=== PATIENT | male | born 1990 | race Caucasian/White ===

== ENCOUNTER 2024-01-12 19:35 | Emergency (ER) | payer SELFPAY ==
[~2024-01-12] VITALS: Ht 172.7 cm; Wt 100.0 kg
[2024-01-12 19:46] VITALS: TEMP 99.5; O2SAT 98
[2024-01-12] MEDS: ACETAMINOPHEN 325MG TABLET PO ONE (20:15)
[2024-01-12] MEDS: BACITRACIN ZINC OINT UDPKT TOP ONE (20:15)
[2024-01-12] MEDS: TETANUS, DIPHTHERIA, PERTUSSIS VAC/PF 0.5ML (>10YR OLD) IM ONE (20:15)
[2024-01-12] MEDS: IBUPROFEN 800MG TABLET PO ONE (20:15)
[2024-01-12 22:25] VITALS: BP 151/87; PULSE 90; RESP 18; O2SAT 97
== END 2024-01-12 23:02 | disposition home or self-care (01) ==
LOC: ER 19:35
DX: S82.401A Unspecified fracture of shaft of right fibula, initial encounter for closed fracture (principal); G89.11 Acute pain due to trauma; V29.498A Other motorcycle driver injured in collision with other motor vehicles in traffic accident, initial encounter; Y93.89 Activity, other specified; Y92.89 Other specified places as the place of occurrence of the external cause; Y99.8 Other external cause status
CPT/HCPCS: 73590; 73610; 73620; 90715; 29505; 90471; 99284; Z7610 ×3